=== PATIENT | female | born 1950 | race Caucasian/White ===

== ENCOUNTER 2020-04-02 05:11 | Inpatient (IN) ==
--- NOTE | 2020-03-28 08:50 | History & Physical Report ---
Date of Service March 28, 2020 Date of surgery: 04-02-20 Assessment & Plan (1) Arthritis of right knee: Risks and benefits of procedure discussed in detail today, patient would like to proceed with a Right total knee replacement at [facility] as scheduled. obtain PATs at [facility]. Will place on ASA 81mg po bid x 1 month post op, f/u 2 weeks post op for routine post-operative care and x-ray, sooner if having any problems. will make arrangements for HHPT at the time of discharge. At this point in time, has failed conservative measures and would like to proceed with surgical intervention. History of Present Illness Chief Complaint: Right knee pain Primary Care Provider: Star Sharp Ms Macedo is a 69 year old female who is here for a follow up of right knee pain, presents for pre-op evaluation prior to a right total knee replacement. She presents with pain and stiffness on the right side. Currently the patient states that the symptoms are moderate-severe and is described as aching, sharp and throbbing. the symptoms are aggravated by ascending stairs, descending stairs, daily activities, driving, first steps while awake, kneeling, movement, repetitive activities, sleeping on the affected side, squatting, walking and weight bearing. In addition to right knee pain the patient is also experiencing limping, nighttime awakening and pain. prior NSAIDs include Aleve and Advil PRN. Prior pain medications include Tylenol. Patient has been treated with previous visco supplementation, Supartz series of 3 injections. Patient has had previous therapy. Patient has had arthroscopic surgery on 03/03/16 Dr. Hickman performed right knee PMM, PLM and has also had a prior left knee TKA. Allergies Allergy/AdvReac Type Severity Reaction Status Date / Time No Known Allergies Allergy Unverified 12/19/19 11:18 Home Medications Home Medications Medication Instructions Recorded Confirmed Type acetaminophen 500 mg PO BID PRN 12/19/19 12/19/19 History escitalopram oxalate [Lexapro] 10 mg PO QAM 12/19/19 12/19/19 History hydrochlorothiazide 25 mg PO QAM 12/19/19 12/19/19 History ibuprofen [Advil] 200 mg PO DAILY PRN 12/19/19 12/19/19 History loratadine 10 mg PO QAM 12/19/19 12/19/19 History Past Med/Surg History Medical History Abnormal EKG Ventricular bigeminy noted on EKG at PAT. Rpt EKG at cardio showed NSR. Anxiety Depression Hearing deficit left ear Hypertension Mucous colitis hx Osteoarthritis Temporomandibular joint disorder clicks. does not lock Surgical History History of bilateral tubal ligation History of colonoscopy History of open reduction and internal fixation (ORIF) procedure left leg (as a young child) History of tonsillectomy History of total knee replacement left S/P ear surgery left ear cyst removal () Family History Other No family history of adverse response to anesthesia Social History Preferred Language: Telugu Communication Ability: Effective Brickmason Supervisor Required: No Beliefs That Will Affect Care: None Current Living Situation: Spouse Feels Safe at Home: Yes Smoking Status: Current every day smoker Tobacco Type: cigarettes ; Cigarettes Per Day: 10 daily x 50 years ; Second Hand Exposure: Yes ; Hx Alcohol Use: No Hx Substance Use: No Review of Systems Review of Systems: All systems reviewed & are unremarkable except as noted in HPI & below Constitutional: no fever, no chills and no sweats Respiratory: no cough and no dyspnea Cardiovascular: no chest pain, no dyspnea and no orthopnea Gastrointestinal: no abdominal pain, no nausea and no vomiting Musculoskeletal: as per Subjective / HPI Physical Exam Physical Exam: Ht: 5ft 5in Wt: 63.5kg BP: 134/78 Pulse: 80 Constitutional: WD/WN, vitals as above no acute distress Respiratory: normal respiratory effort, lungs clear to auscultation no respiratory distress, no labored breathing and does not use accessory muscles Cardiovascular: RRR, no murmur, no edema Gastrointestinal (Abdomen): normal bowel sounds, soft, nontender, no hepatosplenomegaly Musculoskeletal: Knee: + knee abnormal to inspection (RIGHT KNEE), + effusion (+1 effusion), + limited ROM of knee (ROM 0/3/110), + knee ROM with crepitation, + joint line tenderness (medial joint line) and + Servando's sign positive; no deformity, no skin erythema, no ecchymosis, no valgus laxity, no varus laxity, anterior drawer test negative, Elizabeth's sign negative and pivot shift test negative Results & Data Results & Data ([facility]) Diagnostic Findings Right Knee X-ray from 12/03/19 showing advanced degenerative changes to the right knee, narrowing of the medial compartment and patello-femoral joint with patellar spurring noted, findings showing joint space narrowing of the medial compartment and patello-femoral joint, osteophyte formation and subchondral sclerosis noted. overall varus alignment. no acute bony pathology noted.
--- NOTE | 2020-03-31 13:42 | Anesthesiology Consultation ---
Date of Service March 31, 2020 Assessment & Plan Chart Review Chart Review: Acceptable Risk for Surgery and Patient NOT seen in Pre Admission Testing PCP Clearance 01/01/20: "Patient medically cleared for upcoming procedure." Cardio Clearance 01/02/20: "She has good functional status despite her arthritic knees. She told me she goes up 14 steps in her house and sometimes her basement at least once a day and notices no cardiac symptoms. She did have a benign cardiac examination. We should proceed with her surgery excepting the cardiovascular risk involved. An ischemic evaluation is not merited. I noticed an EKG from last month which revealed ventricular bigeminy; the ectopic focus is likely to be the outflow tract... outflow tract ectopy or tachycardia is a relatively benign condition, moreover she does not report any symptoms and a twelve-lead EKG done today in our office revealed no ectopy or arrhythmia. However, this shall be investigated later and a beta-tee could be considered should she become symptomatic." COVID Assessment: Pt travel/history reviewed. Low risk at this time. Will reassess day of surgery. No pending covid testing History Surgery Operation Date: 04/02/20 07:00 Proposed Procedures p Right Total Knee Arthroplasty - Travis Hickman DO Height/Weight Height: 5 ft 4 in Weight: 68.039 kg Allergies Allergy/AdvReac Type Severity Reaction Status Date / Time No Known Allergies Allergy Verified 03/31/20 13:08 Medications Home Medications Medication Instructions Recorded Confirmed Last Taken acetaminophen 500 mg PO BID PRN 12/19/19 03/31/20 Unknown escitalopram oxalate [Lexapro] 10 mg PO QAM 12/19/19 03/31/20 Unknown hydrochlorothiazide 25 mg PO QAM 12/19/19 03/31/20 Unknown ibuprofen [Advil] 200 mg PO DAILY PRN 12/19/19 03/31/20 Unknown loratadine 10 mg PO QAM 12/19/19 03/31/20 Unknown Past Medical History Medical History Abnormal EKG Ventricular bigeminy noted on EKG at PAT. Rpt EKG at cardio showed NSR. Anxiety Depression Hearing deficit left ear Hypertension Mucous colitis hx Osteoarthritis Temporomandibular joint disorder clicks. does not lock Past Family History Family History Other No family history of adverse response to anesthesia Past Surgical History Surgical History History of bilateral tubal ligation History of colonoscopy History of open reduction and internal fixation (ORIF) procedure left leg (as a young child) History of tonsillectomy History of total knee replacement left S/P ear surgery left ear cyst removal () Social History Smoking Status: Current every day smoker tobacco type: cigarettes Smoking cigarettes per day: 10 daily x 50 years Do You Dip or Chew Tobacco: No Hx Alcohol Use: No Hx Substance Use: No substance use type: does not use
[2020-04-02] MEDS ORDERED: METOCLOPRAMIDE HCL 10 MG TABLET PO SCH (06:00)
[2020-04-02] MEDS ORDERED: LR 500ML BOLUS, THEN 15ML/HR IV SCH (06:00)
[2020-04-02] MEDS ORDERED: ROPIVACAINE 0.5% HCL/PF 150 MG, BUPIVACAINE 0.5% MPF 30 ML, EPINEPHrine 30MG/30ML (OR U... INFIL SCH (06:00)
[2020-04-02] MEDS ORDERED: TRANEXAMIC ACID 1,000 MG **IV Pre-op IV SCH (06:00)
[2020-04-02] MEDS ORDERED: CEFAZOLIN 2000MG 2,000 MG/15 ML SYR IV SCH (06:00)
[2020-04-02] MEDS ORDERED: TRANEXAMIC ACID 1,000 MG **IV Intra-op IV SCH (06:00)
[2020-04-02] MEDS ORDERED: FAMOTIDINE 20 MG TAB PO SCH (06:00)
[2020-04-02] MEDS ORDERED: GABAPENTIN 300 MG CAP PO SCH (06:00)
[2020-04-02] MEDS ORDERED: dexAMETHasone 4 MG TAB PO SCH (06:00)
[2020-04-02] MEDS ORDERED: ACETAMINOPHEN 500 MG TAB PO SCH (06:00)
[2020-04-02] MEDS ORDERED: CeleBREX 200 MG CAP PO SCH (06:00)
[2020-04-02 06:10] LABS: Partial Thromboplastin Ratio 0.8; Partial Thromboplastin Time 23.1 Seconds (21.0-31.0); Prothrombin Time 10.8 Seconds (9.0-12.0)
[2020-04-02] MEDS ORDERED: BUPIVACAINE 0.5 % 5 MG/1 ML PF 10ML VIAL ONE (06:30)
[2020-04-02] MEDS ORDERED: ROPIVACAINE 0.5% 5 MG/ML 30 ML VIAL ONE (06:30)
[2020-04-02] MEDS ORDERED: ORTHO JOINT ANESTHETIC ONE (06:39)
[2020-04-02] MEDS ORDERED: ONDANSETRON INJ 2 MG/ML 2 ML VIAL ONE (06:40)
[2020-04-02] MEDS ORDERED: PROPOFOL IV EMULSION 10 MG/ML 20 ML VIAL IV ONE (06:40)
[2020-04-02] MEDS ORDERED: LIDOCAINE HCL 2% 2 ML VIAL/AMP(20MG/ML) INFIL ONE (06:40)
[2020-04-02] MEDS ORDERED: fentaNYL citrate 100 MCG/2 ML VIAL ONE (06:40)
[2020-04-02] MEDS ORDERED: MIDAZOLAM HCL 1 MG/ML 2ML VIAL ONE (06:40)
[2020-04-02] MEDS ORDERED: BACITRACIN INJ 50,000 UNIT VIAL ONE (06:49)
[2020-04-02] MEDS ORDERED: ONDANSETRON INJ 2 MG/ML 2 ML VIAL IV PRN ×2 (06:53→11:04)
[2020-04-02] MEDS ORDERED: HYDROmorphone INJ 1 MG/ML SYRINGE IV PRN (06:53)
[2020-04-02] MEDS ORDERED: KETOROLAC 30 MG/ML VIAL IV PRN (06:53)
[2020-04-02] MEDS ORDERED: ePHEDrine sulfate 50 MG/ML AMP IV PRN (06:53)
[2020-04-02] MEDS ORDERED: ATROPINE SULFATE 0.1 MG/ML 10ML SYR IV PRN (06:53)
--- NOTE | 2020-04-02 07:17 | History & Physical Bridge Note ---
Date of Service April 02, 2020 History & Physical Bridge Note I have examined the patient, reviewed the History & Physical and in the interval since the performance of the History & Physical I have noted the following changes of clinical significance: no changes noted
--- NOTE | 2020-04-02 08:18 | Operative Report ---
Post Operative Report Pre & Post Diagnosis Operation Date: 04/02/20 07:00 Pre-Op Diagnosis: Right Knee Degenerative Joint Disease Post-Op Diagnosis: Right Knee Degenerative Joint Disease I identified the patient and participated in the time-out.: Yes Procedure Operation Date: 04/02/20 07:00 Actual Procedures p Right Total Knee Arthroplasty(Right) utilizing [employer] 2 patient matched total knee arthroplasty size 4 femur 3 tibia 15 polyethylene 29 oval patella- Travis Hickman DO Surgeon Travis Hickman DO Linux System Engineer GEORGE Castanon Estimated Blood Loss 10 Findings Consistent with Post-Op Diagnosis Patient presents with severe end-stage tricompartmental degenerative joint disease varus alignment of the right knee [id number] changes medial compartment subchondral sclerosis marginal osteophytes cystic changes and a moderate to large effusion no response to conservative management Specimens Bone and cartilage Drains Bone and cartilage Anesthesia Type MAC Regional Complications none Disposition Accompanied Patient To Recovery: No Disposition: Recovery Room Indications Patient presents as a 69-year-old white female no response to conservative management and physical therapy relative rest activity modification corticosteroid injection Visco supplementation presents for right total knee arthroplasty Description of Procedure After proper prepping and draping of the Right lower extremity anterior midline incision was made over the region of the extensor extensor mechanism after meticulous hemostasis was obtained and maintained in subcutaneous tissues a medial parapatellar incision was made The patella was subluxed lateralward the medial lateral gutter were cleaned from any hypertrophic synovitis and scar tissue of the distal femoral block was placed and the distal femoral osteotomy cut was made subsequently the chamfers anterior and posterior osteotomy cuts were made utilizing the 4-in-1 block the tibia was subsequently subluxed anteriorward medial and ateral meniscal remnants were excised in their entirety remnants of the anterior and posterior cruciate ligaments were excised in their entirety excellent exposure of the proximal tibia was obtained the tibial osteotomy guide was placed on the proximal tibial osteotomy cut was made once again the knee was irrigated with copious amounts of sterile saline solution the patella was subsequently everted lateralward thickened scar tissue around the patella was removed the patella was subsequently cut utilizing a freehand technique and was drilled prepared for final preparation and placement of patella socially flexion-extension gaps were checked and the equal and symmetric trials were placed to the appropriate femoral and tibial trials with poly-spacer being placed for equal flexion and extension gaps and full range of motion including extension to 0 and flexion to 140 the trial components after having been taken to recovery range of motion was subsequently removed meticulous hemostasis was obtained and maintained subsequently a knee block injection of joint cocktail including ropivacaine 0.5% 150 mg. Bupivacaine 0.5% epinephrine 1-200,030 mL's toradol 30 mg dexamethasone 4 mg ketamine 10 mg clonidine 100 micrograms normal saline solution 30 mg was infiltrated into the soft tissues of the posterior knee medial lateral gutters and periosteal synovium special attention was paid to protect neurovascular structures at all times subsequently trial components having been removed the knee was irrigated with sterile saline solution. debris was removed the proximal tibia was subsequently prepared and was made ready for the placement of the tibial component tibial component was also cemented and tamped into position the femoral component was subsequently placed and cemented in the position the patellar component was subsequently cemented in position because hemostasis once again obtained and maintained wound having been thoroughly irrigated with debridement and debridement lavage was performed as well as a medial parapatellar incision closed with #1 Vicryl in interrupted fashion subcutaneous was closed with #2 Vicryl skin was closed with skin clips. PA-C was necessary for prepping and drapping as well as wound closure of deep fascia Sub cutaneous tissue and skin and was necessary for the case. A sterile compressive dressing was placed patient was taken to recovery in stable condition of report dictated by Vick I attest to the content of the Intraoperative Record and any orders documented therein. Any exceptions are noted below. I attest to the content of the Intraoperative Record and any orders documented therein. Any exceptions are noted below.
--- NOTE | 2020-04-02 09:20 | XRay Report ---
RIGHT KNEE 2 VIEWS History: Right total knee arthroplasty. Degenerative arthritis. Postop. FINDINGS: The patient is status post a right total knee arthroplasty. The hardware is intact. No frac ture or dislocation. Surgical drains are in place. IMPRESSION: Right total knee arthroplasty. No evidence for hardware complication. ACT 112: Negative or not required by law. Electronically signed by: Dandy Parra M.D. 04/02/2020 9:18 AM
--- NOTE | 2020-04-02 10:34 | Anesthesiology Progress Note ---
Date of Service April 02, 2020 Anesthesia Post Procedure Vital Signs Vital Signs: Temp Pulse Pulse Resp BP BP Pulse Ox 04/02/20 10:30 73 17 107/61 93 04/02/20 10:15 74 21 98/66 L 94 04/02/20 10:05 74 16 103/67 95 04/02/20 09:55 36.7 C 78 13 99/62 L 94 04/02/20 09:45 68 23 98/60 L 96 04/02/20 09:35 72 18 91/52 L 96 04/02/20 09:25 74 18 86/58 L 96 04/02/20 09:15 69 14 92/61 L 95 04/02/20 09:05 78 17 89/67 L 95 04/02/20 08:56 36.1 C L 83 12 92/66 L 93 04/02/20 06:08 36.9 C 74 20 112/76 96 Transfer of Care Handoff Completed per policy Notes Mental Status: alert / awake / arousable Patient Amnestic to Procedure: Yes Nausea / Vomiting: adequately controlled Pain: adequately controlled Airway Patency, RR, SpO2: stable & adequate BP & HR: stable & adequate Hydration State: stable & adequate Neuraxial Anesthesia: was administered and sensory block is resolving Anesthetic Complications: no major complications apparent
[2020-04-02] MEDS ORDERED: OXYCODONE HCL IR 5 MG TAB (IMMEDIATE RELEASE) PO PRN (11:04)
[2020-04-02] MEDS ORDERED: HYDROmorphone INJ 0.5 MG/0.5 ML SYR IV PRN (11:04)
[2020-04-02] MEDS ORDERED: MAGNESIUM HYDROXIDE SUSP 30 ML UDC PO PRN (11:04)
[2020-04-02] MEDS ORDERED: bisacodyL 10 MG SUPP PR PRN (11:04)
[2020-04-02] MEDS ORDERED: NALOXONE HCL 0.4 MG/1 ML VIAL/CARP IV PRN (11:04)
[2020-04-02] MEDS ORDERED: METOCLOPRAMIDE HCL INJ 5 MG/ML 2 ML VIAL IV PRN (11:04)
[2020-04-02] MEDS: LORATADINE 10 MG TAB PO SCH (12:13)
[2020-04-02] MEDS: DOCUSATE SODIUM 100 MG CAP PO SCH ×2 (12:13→20:19)
[2020-04-02] MEDS: ESCITALOPRAM OXALATE 10 MG TAB PO SCH (12:13)
[2020-04-02] MEDS: MULTIVITAMIN TAB PO SCH (12:13)
[2020-04-02] MEDS: KETOROLAC TROMETHAMINE 15 MG/ML VIAL IV SCH ×2 (12:14→17:13)
[2020-04-02] MEDS: SODIUM CHLORIDE 0.9% 1000ML 1,000 ML IV SCH ×2 (12:27→23:10)
[2020-04-02] MEDS: ACETAMINOPHEN 500 MG TAB PO SCH ×2 (14:20→23:10)
[2020-04-02] MEDS: CEFAZOLIN 1000MG 1,000 MG/7.5 ML SYR IV SCH ×2 (14:41→23:11)
[2020-04-02] MEDS: ASPIRIN 81 MG ECTAB PO SCH (20:19)
[2020-04-02] MEDS ORDERED: SENNA 8.6 MG TAB PO SCH (21:00)
[2020-04-03] MEDS: KETOROLAC TROMETHAMINE 15 MG/ML VIAL IV SCH ×2 (00:18→06:28)
[2020-04-03] MEDS: ACETAMINOPHEN 500 MG TAB PO SCH ×2 (06:28→13:42)
[2020-04-03 06:42] LABS: Hematocrit (blood only) 32.4 % (37-47); Hemoglobin 10.6 g/dL (12.0-16.0); Mean Corpuscular Hemoglobin 32.4 pg (25-34); Mean Corpuscular Hgb Conc 32.7 g/dL (32-36); Mean Corpuscular Volume 99.1 fL (80-100); Mean Platelet Volume 11.4 fL (7.4-10.4); Platelet Count 229 K/uL (130-400); RDW Coefficient of Variation 13.7 % (11.5-14.5); RDW Standard Deviation 49.5 fL (36.4-46.3); Red Blood Count 3.27 M/uL (4.2-5.4); White Blood Count 12.81 K/uL (4.8-10.8)
[2020-04-03 07:06] LABS: BUN Creatinine Ratio 33.7 (10-20); Calcium 8.4 mg/dl (8.5-10.1); Creatinine Clr Calc Pharmacy 68.7 ml/min; Est GFR (African American) 99.3; Est GFR (Non-African American) 85.7; Potassium 3.7 mmol/L (3.5-5.1)
[2020-04-03] MEDS: ASPIRIN 81 MG ECTAB PO SCH (08:45)
[2020-04-03] MEDS: LORATADINE 10 MG TAB PO SCH (08:45)
[2020-04-03] MEDS: ESCITALOPRAM OXALATE 10 MG TAB PO SCH (08:45)
[2020-04-03] MEDS: MULTIVITAMIN TAB PO SCH (08:45)
[2020-04-03] MEDS: DOCUSATE SODIUM 100 MG CAP PO SCH (08:45)
--- NOTE | 2020-04-03 19:14 | Discharge Summary ---
Date of Service date of discharge: April 03, 2020 date of admission: 04-02-20 Admission HPI Per Admitting Provider Ms Macedo is a 69 year old female who is here for a follow up of right knee pain, presents for pre-op evaluation prior to a right total knee replacement. She presents with pain and stiffness on the right side. Currently the patient states that the symptoms are moderate-severe and is described as aching, sharp and throbbing. the symptoms are aggravated by ascending stairs, descending stairs, daily activities, driving, first steps while awake, kneeling, movement, repetitive activities, sleeping on the affected side, squatting, walking and weight bearing. In addition to right knee pain the patient is also experiencing limping, nighttime awakening and pain. prior NSAIDs include Aleve and Advil PRN. Prior pain medications include Tylenol. Patient has been treated with previous visco supplementation, Supartz series of 3 injections. Patient has had previous therapy. Patient has had arthroscopic surgery on 03/03/16 Dr. Hickman performed right knee PMM, PLM and has also had a prior left knee TKA. Principal Diagnosis right knee osteoarthritis Discharge Exam Vital Signs Temp 36.8 C 04/03/20 07:42 Pulse 78 04/03/20 07:42 Resp 16 04/03/20 07:42 BP 110/78 04/03/20 07:42 Pulse Ox 93 04/03/20 07:42 Intake & Output 04/03/20 04/03/20 04/04/20 06:59 18:59 06:59 Intake Total 2231.667 / 4881.667 Output Total 750 / 960 Balance 1481.667 / 3921.667 - Weight 67.6 kg Intake: IV 1731.667 / 2931.667 Nss 1000ML 1,000 ml @ 100 mls/ 1731.667 / 1731.667 hr IV .Q10H SHANKAR Rx#:[id number] Oral 500 / 950 Output: Urine 650 / 650 Drain Output 100 / 300 Right Back FLORENCE #1 Right Knee Hemovac 100 / 300 Other: # Unmeasured Voids 3 Constitutional WD/WN, vitals as above no acute distress Musculoskeletal right knee: NVDI, calf SNT, negative liliana sign. DP palpable, able to wiggle toes/ankle movement without difficulty. dressing clean dry and intact. expected post-operative bruising noted. Discharge Data Allergies Allergy/AdvReac Type Severity Reaction Status Date / Time No Known Allergies Allergy Verified 04/02/20 05:42 Consultations 04/02/20 11:04 Consult Case Management - Discharge Planning Routine Procedures Performed Operation Date: 04/02/20 07:00 Actual Procedures p Right Total Knee Arthroplasty(Right) - Travis Hickman DO Ordered Studies 04/02/20 05:00 US - OR guided needle placemen Routine Hospital Course (1) Arthritis of right knee: Laboratory Results WBC 12.81 K/uL (4.8-10.8) H 04/03/20 06:24 RBC 3.27 M/uL (4.2-5.4) L 04/03/20 06:24 Hgb 10.6 g/dL (12.0-16.0) L 04/03/20 06:24 Hct 32.4 % (37-47) L 04/03/20 06:24 MCV 99.1 fL (80-100) 04/03/20 06:24 MCH 32.4 pg (25-34) 04/03/20 06:24 MCHC 32.7 g/dL (32-36) 04/03/20 06:24 RDW Std Deviation 49.5 fL (36.4-46.3) H 04/03/20 06:24 RDW Coeff of Mino 13.7 % (11.5-14.5) 04/03/20 06:24 Plt Count 229 K/uL (130-400) 04/03/20 06:24 MPV 11.4 fL (7.4-10.4) H 04/03/20 06:24 PT 10.8 Seconds (9.0-12.0) 04/02/20 05:46 INR 1.0 (0.9-1.1) 04/02/20 05:46 APTT 23.1 Seconds (21.0-31.0) 04/02/20 05:46 PTT Ratio 0.8 04/02/20 05:46 Sodium 140 mmol/L (136-145) 04/03/20 06:24 Potassium 3.7 mmol/L (3.5-5.1) 04/03/20 06:24 Chloride 110 mmol/L (98-107) H 04/03/20 06:24 Carbon Dioxide 25 mmol/L (21-32) 04/03/20 06:24 Anion Gap 5.0 (3-11) 04/03/20 06:24 BUN 24 mg/dl (7-18) H 04/03/20 06:24 Creatinine 0.71 mg/dl (0.6-1.2) 04/03/20 06:24 Est Cr Clr Drug Dosing 68.7 ml/min 04/03/20 06:24 Est GFR ( Amer) 99.3 04/03/20 06:24 Est GFR (Non-Af Amer) 85.7 04/03/20 06:24 BUN/Creatinine Ratio 33.7 (10-20) H 04/03/20 06:24 Glucose 99 mg/dl (70-99) 04/03/20 06:24 Calcium 8.4 mg/dl (8.5-10.1) L 04/03/20 06:24 Blood Type AB Positive 04/02/20 05:46 Antibody Screen NEGATIVE 04/02/20 05:46 Total Time Total Time Spent Total Time Spent (In Minutes): 20 Total Time Includes: Examination of the Patient, Discharge Planning and Medication Reconciliation Discharge Plan Discharge Items Patient Disposition: Home - Self-Care Reason For Visit: RIGHT KNEE DEGENERATIVE JOINT DISEASE Discharge Diagnosis: DJD right knee Activity: Per Instructions section Weightbearing: Right weightbearing Weightbearing Comment: As tolerated with walker Non-emergency contact: Surgeon Call non-emergency contact if: your pain is not controlled, your temperature is above 101.5, your wound has increased redness and your wound has increased drainage Follow-up/Referrals: Star Sharp M.D. [Primary Care Provider] - Diet: Regular Addtl Attending Provider Instructions: ACTIVITY RECOMMENDATIONS: SELF CARE INSTRUCTIONS AFTER TOTAL KNEE REPLACEMENT A. You may need to continue a physical therapy program after discharge from the hospital. There are several options available to you. Your doctor will assist you in selecting the best one for you. 1. An out-patient facility 2 to 3 times a week for therapy or home therapy. 2. Continue working on all exercises taught to you in the hospital. Your goals should be to increase bending of your knee to 90 degrees and beyond and to fully straighten your knee. B. You may progress at your own pace from walking with a walker or crutches to a cane; then to no assistive devices. C. Make walking a part of your daily routine. Be up as much as comfortable with rest periods throughout the day. Rest with leg elevation is very important. Use the ice wrap frequently for the first 3-4 weeks. D. There are no restrictions on activities. You may ride in a car, shop, participate in quality system manager and all social activities. E. Wear the long elastic stockings (DORENE hose) 20 hours a day for 2 weeks after surgery. They can be removed several times a day for laundering and for a bath. F. You may shower, no tub baths until cleared by your doctor. SPECIAL CARE INSTRUCTIONS: VERY IMPORTANT TO READ AND REVIEW A. There are a few signs you need to watch for after you are home. Call [facility] if you notice any of the followin. Increased severe knee pain. Some pain is expected especially when you exercise. 2. Increased swelling in your leg or knee; pain or swelling of the calf muscle in either lower leg. 3. Any fluid drainage from the incision. 4. Shortness of breath or chest pain. B. Please call [facility] at if you have any concerns or questions about your operation or recovery. The doctor or his nurse will return your call promptly. C. You must take antibiotics before dental work, bladder, bowel or other surgery. Your doctor will provide you with a permanent care to carry describing this precaution. IMPORTANT: * REMEMBER TO TAKE ASPIRIN, 81 MG, TWICE DAILY FOR 4 WEEKS UNLESS OTHERWISE DIRECTED. THIS IS YOUR BLOOD THINNER. * HIGH RISK PATIENTS MAY BE PRESCRIBED A STRONGER BLOOD THINNER. THIS WILL BE PROVIDED AT DISCHARGE. * CALL IF INCREASED PAIN, REDNESS, DRAINAGE OR FEVER GREATER THAT 101. * WEAR DORENE HOSE 20 HOURS PER DAY FOR 2 WEEKS. * DERMABOND Prineo- This is a mesh tape dressing that is covered with glue. It should remain in place until the incision is properly healed, usually 10-14 days. This dressing is designed to naturally slough off. You may trim the excess mesh tape as it peels off. Incision may be briefly wet in a shower. Dry immediately by blotting with a clean, dry towel. Do not bath or swim until instructed by your doctor. Do not scratch, rub, or pick at the dressing. Do not apply any topical ointments or lotions until dressing is completely removed and/or instructed by your doctor. There may be a small piece of suture material at one end of your incision. Do not pull or trim this. If it is bothersome or catching on clothing, you may cover it with a band-aid. Call your doctor with any other questions about the dressing/wound. . FOLLOW UP VISIT: If appointment is not already scheduled: Please call [facility] to make a follow-up appointment for 2 weeks after your surgery at . Stand-Alone Forms: My [facility] [employer], Opioid Pain Management, Smoking Cessation Medications and DC Order Prescriptions: New celecoxib [Celebrex] 200 mg Capsule 200 mg PO BID Qty: 28 RF: 0 aspirin 81 mg Tablet,Delayed Release (Dr/Ec) 81 mg PO BID 30 Days Qty: 60 RF: 0 acetaminophen 500 mg Tablet 1,000 mg PO Q8 14 Days Qty: 84 RF: 0 sennosides [Senokot] 8.6 mg Tablet 17.2 mg PO HS Qty: 30 RF: 0 oxycodone 5 mg Tablet 5 mg PO Q4H MDD 6 PRN (Reason: pain) Qty: 30 RF: 0 Continued hydrochlorothiazide 25 mg Tablet 25 mg PO QAM RF: 0 loratadine 10 mg Tablet 10 mg PO QAM RF: 0 escitalopram oxalate [Lexapro] 10 mg Tablet 10 mg PO QAM RF: 0 Discontinued acetaminophen 500 mg Tablet 500 mg PO BID PRN (Reason: Pain) RF: 0 ibuprofen [Advil] 200 mg Tablet 200 mg PO DAILY PRN (Reason: Pain) RF: 0 Discharge Orders: Discharge Order (Routine); Ordered 04/03/20 Ordered By: Patricio Bhakta/Other Patient Handouts: DVT Prevention Admission Data Admit Date/Time: 04/02/20 09:07 Attending Provider: Travis Hickman Admit Provider: Travis Hickman Primary Care Provider: Star Sharp Other Interventions: Discharge Summary Assessment (RN) Last Done: 04/03/20 13:07 DC Date/Time DO NOT enter until pt leaves facility: 04/03/20 14:23
[2020-04-03] MEDS ORDERED: CeleBREX 200 MG CAP PO SCH (21:00)
== END 2020-04-03 14:23 | disposition home or self-care (01) | DRG 470 ==
LOC: ASU 05:11 → 3N 09:07